=== PATIENT | female | born 1970 | race Hispanic/Latino ===

== ENCOUNTER 2018-09-10 08:54 | Day surgery (SDC) | payer MEDICARE ==
[2018-09-09 16:22] VITALS: BP 130/73
[2018-09-10] VITALS (18 sets, daily range): BP systolic 109–134; BP diastolic 45–74
[~2018-09-10] VITALS: Ht 162.6 cm; Wt 106.6 kg
[~2018-09-10 08:54] MED LIST: ACTOS PO; ALPR1TAB2 PO; AMLO10TA6 PO; CEFAZOLIN 3GM /D5W 100ML 100 ML IV SCH; INSU500I SQ; LIRA0.6P SQ; LISI40TA4 PO; METO-391 PO; ROSU40 PO; SERT100T PO; TYL3 PO
[2018-09-10] MEDS ORDERED: SODIUM CHLORIDE 0.9% 1000ML 1,000 ML IV ONE (09:37)
[2018-09-10] MEDS ORDERED: CEFAZOLIN SODIUM 1 GM VIAL ONE (09:37)
[2018-09-10] MEDS: VANCOMYCIN 2 GM in SODIUM CHLORIDE 0.9% 500ML 500 ML IV SCH ×2 (10:34)
[2018-09-10] MEDS ORDERED: ROPIVACAINE 0.5% 5MG/ML 30ML IJ ONE (11:58)
[2018-09-10] MEDS ORDERED: ESMOLOL HCL 10 MG/ML 10 ML VIAL ONE (11:59)
[2018-09-10] MEDS ORDERED: ONDANSETRON HCL 4 MG/2 ML VIAL ONE (11:59)
[2018-09-10] MEDS ORDERED: LIDOCAINE PF 2% 5ML ABBOJECT ONE (12:00)
[2018-09-10] MEDS ORDERED: PROPOFOL 10 MG/ML 20ML VIAL IV ONE (12:00)
[2018-09-10] MEDS ORDERED: FENTANYL CITRATE PF 50 MCG/1 ML 2ML VIAL ONE ×3 (12:00→14:24)
[2018-09-10] MEDS ORDERED: MIDAZOLAM HCL 1 MG/ML 2ML VIAL ONE (12:00)
[2018-09-10] MEDS ORDERED: EPINEPHRINE 1 MG/ML 30ML VIAL IJ ONE (12:00)
[2018-09-10] MEDS ORDERED: KETAMINE 50MG/ML SYRINGE 50 MG/ML DISP.SYRIN IV ONE (12:01)
[2018-09-10] MEDS ORDERED: SUCCINYLCHOLINE CHLORIDE 20 MG/ML 10 ML VIAL ONE (12:06)
[2018-09-10] MEDS ORDERED: PHENYLEPHRINE HCL 10 MG/ML 1ML VIAL IV ONE (12:46)
[2018-09-10] MEDS ORDERED: EPHEDRINE SULFATE 50 MG/ML AMPULE ONE (12:46)
[2018-09-10] MEDS ORDERED: NEOSTIGMINE 5MG/5ML SYR IV ONE (14:13)
[2018-09-10] MEDS ORDERED: GLYCOPYRROLATE 1 MG/5 ML SYRINGE ONE (14:13)
[2018-09-10] MEDS ORDERED: NAPR-1192 PO (14:28)
[2018-09-10] MEDS ORDERED: CEPH500B PO (14:28)
[2018-09-10] MEDS ORDERED: HYDR-4457 PO (14:28)
[2018-09-10] MEDS ORDERED: MEPERIDINE-PF 25 MG/ML SYG ONE ×2 (14:54→15:15)
[2018-09-10] MEDS ORDERED: METOCLOPRAMIDE 10 MG/2 ML VIAL ONE (14:57)
[2018-09-10] MEDS ORDERED: ONDANSETRON HCL MDV 20ML 2 MG/ML VIAL ONE (14:58)
[2018-09-10] MEDS ORDERED: INSULIN HUMULIN R 100 UNIT/ML 3ML ONE (15:52)
== END 2018-09-10 17:44 | disposition home or self-care (01) ==
LOC: DAH 08:54
PROVIDERS: ATTEND Orthopaedic Surgery
DX: M75.41 Impingement syndrome of right shoulder (principal); M65.811 Other synovitis and tenosynovitis, right shoulder; M25.611 Stiffness of right shoulder, not elsewhere classified; Z68.39 Body mass index [BMI] 39.0-39.9, adult; Z79.899 Other long term (current) drug therapy; Z79.84 Long term (current) use of oral hypoglycemic drugs; Z79.4 Long term (current) use of insulin; I10 Essential (primary) hypertension; E11.9 Type 2 diabetes mellitus without complications; Z98.890 Other specified postprocedural states; F41.9 Anxiety disorder, unspecified; E66.01 Morbid (severe) obesity due to excess calories
CPT/HCPCS: 29824; 29826; 82948 ×3; A4649 ×2; A4930; A6204; G0168; J0171; J0330; J1815; J2001; J2175 ×2; J2250; J2370; J2405; J2704; J2710; J2765; J2795; J3010 ×3; J3370; J3490 ×4; J7030 ×2; J7040; J0690

== ENCOUNTER 2018-12-09 02:31 | Emergency (ER) | payer MEDICARE ==
[~2018-12-09 02:31] MED LIST changes: -AMLO10TA6 PO; +AMLO10TA7 PO; -CEFAZOLIN 3GM /D5W 100ML 100 ML IV SCH; +CEPH500B PO; +HYDR-4457 PO; +NAPR-1192 PO
[2018-12-09 03:00] LABS: APPEARANCE,URINE Clear (CLEAR); BILIRUBIN,URINE Negative (NEGATIVE); GLUCOSE, URINE (UA) Negative (NEGATIVE); KETONES,URINE >=80 mg/dL (NEGATIVE); LEUKOCYTE ESTERASE ,URINE Negative (NEGATIVE); NITRATE,URINE Negative (NEGATIVE); OCCULT BLOOD,URINE Negative (NEGATIVE); PROTEIN,URINE POS 1+ (NEGATIVE)
[2018-12-09 03:01] LABS: COLOR,URINE YELLOW (YELLOW)
[2018-12-09] MEDS ORDERED: MAG HYDROX/AL HYDROX/SIMETH ES 30 ML SUSP UDCUP ONE (03:40)
[2018-12-09] MEDS ORDERED: ONDANSETRON HCL 4 MG/2 ML VIAL ONE (03:40)
[2018-12-09] MEDS ORDERED: LIDOCAINE HCL 2% VISCOUS 15 ML UDCUP ONE (03:40)
[2018-12-09 03:55] LABS: BACTERIA,URINE Rare /HPF (None Seen)
[2018-12-09 03:56] LABS: RBC,URINE None Seen /HPF (0-1)
[2018-12-09 04:16] LABS: CREATININE 0.6 mg/dL (0.5-1.5); POTASSIUM 3.7 mmol/L (3.5-5.1)
[2018-12-09 04:20] LABS: ALBUMIN 3.9 g/dL (3.5-5.0); BILIRUBIN,DIRECT 0.1 mg/dL (0.0-0.3); BILIRUBIN,TOTAL 0.4 mg/dL (0.2-1.0); TOTAL PROTEIN, SERUM 7.4 g/dL (6.0-8.3)
[2018-12-09 04:27] LABS: BASOPHILS % (AUTO) 0.9 % (0.0-5.0); EOSINOPHILS % (AUTO) 3.5 % (0.0-8.0); LYMPHOCYTES % (AUTO) 20.3 % (21.0-51.0); MEAN CORPUSCULAR HGB CONC 33.4 g/dL (32.0-36.0); MEAN CORPUSCULAR VOLUME 83.9 fL (79-99); MONOCYTES % (AUTO) 3.7 % (3.0-13.0); NEUTROPHILS % (AUTO) 71.6 % (40.0-77.0); PLATELET COUNT (AUTO) 176 K/uL (130-400); RED BLOOD CELL COUNT(AUTO) 4.76 MIL/uL (4.00-5.50); RED CELL DISTRIBUTION WIDTH 14.3 % (11.0-15.5); WHITE BLOOD COUNT (AUTO) 7.8 K/uL (4.8-10.8)
[2018-12-09] MEDS ORDERED: PROCHLORPERAZINE EDISYLATE 10 MG/2 ML VIAL ONE (04:58)
[2018-12-09] MEDS ORDERED: MORPHINE SULFATE 2 MG/ML 1ML SYG ONE (04:59)
== END 2018-12-09 06:16 | disposition home or self-care (01) ==
LOC: EDH 02:31
DX: R10.13 Epigastric pain (principal); R11.2 Nausea with vomiting, unspecified; E11.43 Type 2 diabetes mellitus with diabetic autonomic (poly)neuropathy; K31.84 Gastroparesis; Z79.4 Long term (current) use of insulin; I10 Essential (primary) hypertension; E78.5 Hyperlipidemia, unspecified; Z90.49 Acquired absence of other specified parts of digestive tract; Z90.710 Acquired absence of both cervix and uterus; Z88.8 Allergy status to other drugs, medicaments and biological substances
CPT/HCPCS: 36415; 74176; 80048; 80076; 81001; 83690; 85025; 96374; 96375; 99284; J0780; J2405

== ENCOUNTER 2019-07-29 08:35 | Day surgery (SDC) | payer MEDICARE ==
[2019-07-28 15:30] VITALS: BP 153/82
[2019-07-28 15:46] LABS: BASOPHILS % (AUTO) 1.2 % (0.0-5.0); EOSINOPHILS % (AUTO) 1.5 % (0.0-8.0); HEMATOCRIT 42.2 % (36-48); LYMPHOCYTES % (AUTO) 31.5 % (21.0-51.0); MEAN CORPUSCULAR HEMOGLOBIN 29.2 pg (27.0-33.0); MEAN CORPUSCULAR HGB CONC 33.6 g/dL (32.0-36.0); MEAN CORPUSCULAR VOLUME 87.1 fL (79-99); MONOCYTES % (AUTO) 4.4 % (3.0-13.0); NEUTROPHILS % (AUTO) 61.4 % (40.0-77.0); NUCLEATED RED BLOOD CELLS 0.1 % (0.0-0.19); PLATELET COUNT (AUTO) 164 K/uL (130-400); RED BLOOD CELL COUNT(AUTO) 4.84 MIL/uL (4.00-5.50); RED CELL DISTRIBUTION WIDTH 13.6 % (11.0-15.5); WHITE BLOOD COUNT (AUTO) 5.9 K/uL (4.8-10.8)
[2019-07-28 15:59] LABS: CREATININE 0.5 mg/dL (0.5-1.5); POTASSIUM 3.6 mmol/L (3.5-5.1)
[~2019-07-29] VITALS: Ht 162.6 cm; Wt 74.4 kg
[2019-07-29] VITALS (20 sets, daily range): BP systolic 136–173; BP diastolic 56–92
[2019-07-29] MEDS: CEFAZOLIN SODIUM 1 GM VIAL IVP SCH ×2 (06:00→12:00)
[~2019-07-29 08:35] MED LIST changes: -ALPR1TAB2 PO; -AMLO10TA7 PO; -CEPH500B PO; +GABA600T10 PO; +HUMALOG SQ; -HYDR-4457 PO; +INSLAN SQ; -INSU500I SQ; -LIRA0.6P SQ; -METO-391 PO; -NAPR-1192 PO; +OZEMPIC PO; -ROSU40 PO; -SERT100T PO; -TYL3 PO
[2019-07-29] MEDS ORDERED: SODIUM CHLORIDE 0.9% 1000ML 1,000 ML IV ONE (09:13)
[2019-07-29] MEDS ORDERED: MIDAZOLAM HCL 1 MG/ML 2ML VIAL ONE (10:33)
[2019-07-29] MEDS ORDERED: PROPOFOL 10 MG/ML 20ML VIAL IV ONE (10:38)
[2019-07-29] MEDS ORDERED: ROCURONIUM 10MG/1ML SYR 10 MG/ML ML ONE (10:38)
[2019-07-29] MEDS ORDERED: LIDOCAINE PF 2% 5ML ABBOJECT ONE ×2 (10:38→11:23)
[2019-07-29] MEDS ORDERED: FENTANYL CITRATE PF 50 MCG/1 ML 5ML AMP IV ONE (10:38)
[2019-07-29] MEDS ORDERED: SUCCINYLCHOLINE 200MG/10ML SYR ONE (11:24)
[2019-07-29] MEDS ORDERED: EPHEDRINE SULFATE 50 MG/ML AMPULE ONE (11:51)
[2019-07-29] MEDS ORDERED: KETAMINE 50MG/ML SYRINGE 50 MG/ML DISP.SYRIN IV ONE (12:11)
[2019-07-29] MEDS ORDERED: DEXAMETHASONE SOD PHOSPHATE 10MG/ML 1ML VIAL ONE (12:13)
[2019-07-29] MEDS ORDERED: ONDANSETRON HCL 4 MG/2 ML VIAL ONE ×2 (12:13→14:40)
[2019-07-29] MEDS ORDERED: NEOSTIGMINE 5MG/5ML SYR IV ONE (12:13)
[2019-07-29] MEDS ORDERED: GLYCOPYRROLATE 1 MG/5 ML SYRINGE ONE (12:13)
[2019-07-29] MEDS ORDERED: KETOROLAC TROMETHAMINE 30MG/ML ONE (12:14)
[2019-07-29] MEDS ORDERED: HYDRALAZINE HCL 20 MG/ML VIAL ONE (12:35)
[2019-07-29] MEDS ORDERED: CEPH500B PO (13:11)
[2019-07-29] MEDS ORDERED: HYDR-4457 PO (13:11)
[2019-07-29] MEDS ORDERED: MELO-108 PO (13:11)
[2019-07-29] MEDS ORDERED: MORPHINE SULFATE 4 MG/1ML SYG ONE (14:12)
--- NOTE | 2019-07-29 14:16 | NUR ---
PT COMPLAIN CHEST PRESSURE 02/02. ALETHA HE NOTIFIED. ORDERS GIVEN FOR EKG, MORPHINE AND O2 2L. Addendum: 07/29/19 at 1422 by ADAM PEOPLES RN RN Amended: Links added.
--- NOTE | 2019-07-29 14:29 | NUR ---
ALETHA HE REVIEWED EKG. PT STATES CHEST PRESSURE NO LONGER PRESENT. VS STABLE. ALETHA HE ORDERED TO SEND PT TO DAY PT FOR FURTHER MONITORING AND DISCHARGE HOME. Addendum: 07/29/19 at 1433 by ADAM PEOPLES RN RN Amended: Links added.
[2019-07-29] MEDS ORDERED: METOCLOPRAMIDE 10 MG/2 ML VIAL IVP SCH (15:30)
== END 2019-07-29 18:10 | disposition home or self-care (01) ==
LOC: DAH 08:35
PROVIDERS: ATTEND Orthopaedic Surgery
DX: M75.01 Adhesive capsulitis of right shoulder (principal); M25.511 Pain in right shoulder; I10 Essential (primary) hypertension; E66.9 Obesity, unspecified; E11.21 Type 2 diabetes mellitus with diabetic nephropathy; Z68.28 Body mass index [BMI] 28.0-28.9, adult; Z79.899 Other long term (current) drug therapy; Z79.4 Long term (current) use of insulin; Z79.84 Long term (current) use of oral hypoglycemic drugs; Z98.890 Other specified postprocedural states; Z90.49 Acquired absence of other specified parts of digestive tract; Z88.8 Allergy status to other drugs, medicaments and biological substances; Z82.49 Family history of ischemic heart disease and other diseases of the circulatory system; Z82.3 Family history of stroke; Z83.3 Family history of diabetes mellitus
CPT/HCPCS: 29822; 29824; 29826; 36415; 80048; 82948 ×2; 85025; 93005; A4215 ×2; A4221 ×2; A4222 ×2; A4223 ×2; A4565; A4600; A4649 ×3; A4663 ×2; A4930 ×2; A5120; A6204; J0330; J0690; J1100; J1885; J2001 ×2; J2250; J2270; J2405 ×2; J2704; J2710; J2765; J3010; J3490 ×3; J7030 ×2; J0360

== ENCOUNTER → 2019-11-22 | Outpatient (CLI) | payer MEDICARE ==
[~2019-11-22] MED LIST changes: +CEPH500B PO; +HYDR-4457 PO; +MELO-108 PO
== END | disposition home or self-care (01) ==
LOC: RAH 11:01
PROVIDERS: ATTEND Internal Medicine Gastroenterology
DX: R11.2 Nausea with vomiting, unspecified (principal)
CPT/HCPCS: 78264; A9541

== ENCOUNTER → 2019-12-12 | Outpatient (CLI) | payer MEDICARE | END | disposition home or self-care (01) | LOC: RAH 09:13 | PROVIDERS: ATTEND Internal Medicine Gastroenterology | DX: R13.10 Dysphagia, unspecified (principal); K21.9 Gastro-esophageal reflux disease without esophagitis; Z98.84 Bariatric surgery status | CPT/HCPCS: 74240 ==

== ENCOUNTER → 2020-05-15 | Outpatient (CLI) | payer MEDICARE | END | disposition home or self-care (01) | LOC: RAH 14:16 | PROVIDERS: ATTEND Orthopaedic Surgery | DX: S62.112A Displaced fracture of triquetrum [cuneiform] bone, left wrist, initial encounter for closed fracture (principal); X58.XXXA Exposure to other specified factors, initial encounter; Y93.89 Activity, other specified; Y92.89 Other specified places as the place of occurrence of the external cause; Y99.8 Other external cause status | CPT/HCPCS: 73200 ==

== ENCOUNTER 2020-07-23 07:35 | Observation (INO) | payer MEDICARE ==
[2020-07-16 14:47] LABS: BASOPHILS % (AUTO) 0.9 % (0.0-5.0); HEMATOCRIT 40.7 % (36-48); LYMPHOCYTES % (AUTO) 40.2 % (21.0-51.0); MEAN CORPUSCULAR HEMOGLOBIN 28.3 pg (27.0-33.0); MEAN CORPUSCULAR HGB CONC 32.9 g/dL (32.0-36.0); MEAN CORPUSCULAR VOLUME 85.9 fL (79-99); MONOCYTES % (AUTO) 4.4 % (3.0-13.0); NEUTROPHILS % (AUTO) 51.3 % (40.0-77.0); PLATELET COUNT (AUTO) 194 K/uL (130-400); RED BLOOD CELL COUNT(AUTO) 4.74 MIL/uL (4.00-5.50); RED CELL DISTRIBUTION WIDTH 12.6 % (11.0-15.5); WHITE BLOOD COUNT (AUTO) 6.4 K/uL (4.8-10.8)
[2020-07-16 14:56] LABS: CREATININE 0.6 mg/dL (0.5-1.5); POTASSIUM 3.8 mmol/L (3.5-5.1)
[~2020-07-23] VITALS: Ht 163.8 cm; Wt 67.4 kg
[2020-07-23] VITALS (30 sets, daily range): BP systolic 124–199; BP diastolic 67–98
[~2020-07-23 07:35] MED LIST changes: -ACTOS PO; -CEPH500B PO; +EXEN2PEN SQ; +FURO40TA5 PO; +GABA300C PO; -GABA600T10 PO; -HUMALOG SQ; -HYDR-4457 PO; -MELO-108 PO; -OZEMPIC PO; +PRED5DRO25 OP; +ZOLP10TA2 PO
[2020-07-23] MEDS ORDERED: SODIUM CHLORIDE 0.9% 1000ML 1,000 ML IV SCH (08:00)
[2020-07-23] MEDS: CEFAZOLIN SODIUM 1 GM VIAL IVP ONE ×2 (08:00→11:50)
[2020-07-23] MEDS ORDERED: CEFAZOLIN SODIUM 1 GM VIAL ONE (09:57)
[2020-07-23] MEDS ORDERED: LIDOCAINE PF 2% 5ML ABBOJECT ONE (11:26)
[2020-07-23] MEDS ORDERED: ROCURONIUM 10MG/1ML SYR 10 MG/ML ML ONE ×2 (11:27→12:40)
[2020-07-23] MEDS ORDERED: PROPOFOL 10 MG/ML 20ML VIAL IV ONE (11:27)
[2020-07-23] MEDS ORDERED: MIDAZOLAM HCL 1 MG/ML 2ML VIAL ONE (11:27)
[2020-07-23] MEDS ORDERED: DEXAMETHASONE SOD PHOSPHATE 4 MG/ML 1ML VIAL ONE (11:53)
[2020-07-23] MEDS ORDERED: FENTANYL CITRATE PF 50 MCG/1 ML 2ML VIAL ONE ×2 (11:56→12:35)
[2020-07-23] MEDS ORDERED: NEOSTIGMINE 5MG/5ML SYR IV ONE (12:49)
[2020-07-23] MEDS ORDERED: ONDANSETRON HCL 4 MG/2 ML VIAL ONE ×2 (12:49→14:19)
[2020-07-23] MEDS ORDERED: GLYCOPYRROLATE 1 MG/5 ML SYRINGE ONE (12:49)
[2020-07-23] MEDS ORDERED: MEPERIDINE-PF 25 MG/ML SYG ONE ×2 (14:14→15:34)
[2020-07-23] MEDS ORDERED: MORPHINE SULFATE 2 MG/ML 1ML SYG ONE ×3 (14:31→16:48)
[2020-07-23] MEDS ORDERED: HYDRALAZINE HCL 20 MG/ML VIAL ONE (14:39)
--- NOTE | 2020-07-23 17:30 | NUR ---
From PACU PT ARRIVED TO FLOOR FROM PACU, PT IS DROWSY BUT EASILY AROUSES, LOWER ABDOMINAL DRESSING D/I ABDOMINAL BINDER IN PLACE, X2 KYLE DRAINS, ONE ON THE RIGHT AND ONE TO THE LEFT, BOTH PATENT AND COMPRESSED. PLAN OF CARE DISCUSSED, INFORMED PRIMARY OF PT'S ARRIVAL TO ROOM.
[2020-07-23] MEDS ORDERED: TRAMADOL HCL 50 MG TABLET PO PRN (19:00)
[2020-07-23] MEDS ORDERED: CEFAZOLIN SODIUM 1 GM VIAL IVP SCH (20:15)
[2020-07-23] MEDS ORDERED: APAP/CODEINE 120/12MG 5ML PO PRN (20:15)
[2020-07-23] MEDS: MORPHINE SULFATE 4 MG/1ML SYG IV PRN (21:33)
[2020-07-23] MEDS: CEFAZOLIN SODIUM 1 GM VIAL IVP SCH (21:33)
[2020-07-23] MEDS: KETOROLAC TROMETHAMINE 30MG/ML IV PRN (23:22)
[2020-07-24] MEDS: MORPHINE SULFATE 4 MG/1ML SYG IV PRN ×2 (02:49→09:12)
[2020-07-24 03:53] VITALS: BP 124/62
[2020-07-24] MEDS: KETOROLAC TROMETHAMINE 30MG/ML IV PRN ×2 (05:44→14:04)
[2020-07-24] MEDS: CEFAZOLIN SODIUM 1 GM VIAL IVP SCH (05:44)
[2020-07-24 06:02] LABS: BASOPHILS % (AUTO) 0.6 % (0.0-5.0); EOSINOPHILS % (AUTO) 0.9 % (0.0-8.0); HEMATOCRIT 32.5 % (36-48); LYMPHOCYTES % (AUTO) 13.5 % (21.0-51.0); MEAN CORPUSCULAR HEMOGLOBIN 28.5 pg (27.0-33.0); MEAN CORPUSCULAR HGB CONC 33.2 g/dL (32.0-36.0); MEAN CORPUSCULAR VOLUME 85.8 fL (79-99); MONOCYTES % (AUTO) 6.4 % (3.0-13.0); NEUTROPHILS % (AUTO) 78.3 % (40.0-77.0); PLATELET COUNT (AUTO) 166 K/uL (130-400); RED BLOOD CELL COUNT(AUTO) 3.79 MIL/uL (4.00-5.50); RED CELL DISTRIBUTION WIDTH 12.1 % (11.0-15.5)
[2020-07-24 06:20] LABS: CREATININE 0.6 mg/dL (0.5-1.5); POTASSIUM 4.1 mmol/L (3.5-5.1)
[2020-07-24 08:00] VITALS: BP 119/61
[2020-07-24] MEDS ORDERED: NON-FORMULARY MEDICATION 1 EACH (Zolpidem Tartrate (Ambien) 10 MG) PO PRN (09:30)
[2020-07-24] MEDS ORDERED: ZOLPIDEM TARTRATE 5 MG TAB PO PRN (10:00)
[2020-07-24 11:45] VITALS: BP 124/66
--- NOTE | 2020-07-24 15:25 | NUR ---
DCP IA done by Collins Edward RN. As per Collins spoke to pt over the phone. Pt is independent prior to admission, lives at home alone. Uses [facility] on [address] for meds. Denies any equipments/services. Feels safe to go back home, still drives, boyfriend and son able to assist with transportation and needs as necessary. DC plan to home once stable. CM to continue to follow up. Addendum: 07/24/20 at 1527 by KAPIL PASCUAL LVN CM Amended: Links added.
[2020-07-24] MEDS ORDERED: AMOX-429 PO (17:39)
[2020-07-24] MEDS ORDERED: IBUP-1493 PO (17:40)
[2020-07-24] MEDS ORDERED: PREDNISOLONE ACETATE 1% 5ML DROPS.SUSP OP SCH (21:00)
[2020-07-24] MEDS ORDERED: INSULIN GLARGINE 100 UNITS/ML 10 ML VIAL SQ SCH (21:00)
[2020-07-24] MEDS ORDERED: LISINOPRIL 40 MG TABLET PO SCH (21:00)
[2020-07-25] MEDS ORDERED: FUROSEMIDE 40 MG TABLET PO SCH (09:00)
[2020-07-25] MEDS ORDERED: GABAPENTIN 300 MG CAPSULE PO SCH (09:00)
[2020-07-31] MEDS ORDERED: EXENATIDE MICROSPHERES 2 MG SQ SCH (09:00)
== END 2020-07-24 19:20 | disposition home or self-care (01) ==
LOC: DAH 07:35 → 3BH 07:36
PROVIDERS: ADMIT Surgery; ATTEND Surgery
DX: M79.3 Panniculitis, unspecified (principal); Z20.828 Contact with and (suspected) exposure to other viral communicable diseases
CPT/HCPCS: 15830; 36415 ×2; 80048 ×2; 82948 ×4; 84703; 85025 ×2; 88305; 93005; 96374; 96375; 96376; A4213; A4215 ×2; A4221; A4222; A4223; A4452; A4649; A4663; A6260; C9803; G0378 ×18; J0360; J0690 ×3; J1885 ×3; J2001; J2175 ×2; J2250; J2270 ×3; J2405 ×2; J2704; J2710; J3010 ×2; J3490; J7030; J7120; J7510; U0003; J1100

== ENCOUNTER → 2020-09-03 | Outpatient (CLI) | payer MEDICARE ==
[~2020-09-03] MED LIST changes: +AMOX-429 PO; +IBUP-1493 PO; +OZEMPIC SQ
[2020-09-03 16:23] LABS: INR 0.92 (0.85-1.15); PARTIAL THROMBOPLASTIN TIME 24.7 SEC (26.3-35.5)
[2020-09-03 16:35] LABS: BASOPHILS % (AUTO) 1.5 % (0.0-5.0); EOSINOPHILS % (AUTO) 3.6 % (0.0-8.0); HEMATOCRIT 34.5 % (36-48); LYMPHOCYTES % (AUTO) 37.9 % (21.0-51.0); MEAN CORPUSCULAR HEMOGLOBIN 25.7 pg (27.0-33.0); MEAN CORPUSCULAR HGB CONC 30.7 g/dL (32.0-36.0); MEAN CORPUSCULAR VOLUME 83.5 fL (79-99); MONOCYTES % (AUTO) 4.8 % (3.0-13.0); PLATELET COUNT (AUTO) 211 K/uL (130-400); RED BLOOD CELL COUNT(AUTO) 4.13 MIL/uL (4.00-5.50); RED CELL DISTRIBUTION WIDTH 12.3 % (11.0-15.5); WHITE BLOOD COUNT (AUTO) 5.2 K/uL (4.8-10.8)
[2020-09-03 16:54] LABS: ALBUMIN 3.6 g/dL (3.5-5.0); BILIRUBIN,TOTAL 0.3 mg/dL (0.2-1.0); CREATININE 0.4 mg/dL (0.5-1.5); POTASSIUM 4.2 mmol/L (3.5-5.1); TOTAL PROTEIN, SERUM 6.9 g/dL (6.0-8.3)
--- NOTE | 2020-09-04 09:15 | NUR ---
Pt arrived to Day pt. JONATHON Mccoy here to access pt. Pt reports draining on average 30 cc per 24 hour time period. Pt reports having emptied bag at 23:00 yesterday and bag currently has 12 cc of drainage. Pt reports that the drain is not being flushed. Pt complains that accordion valve keeps releasing every 10 mins.
--- NOTE | 2020-09-04 09:30 | NUR ---
JONATHON Mccoy spoke with Dr. Foster concerning pt's drainage status. Dr. Foster gave orders to reschedule abscessorgram when drain output it <10 mols in 24 hours.
--- NOTE | 2020-09-04 09:40 | NUR ---
Dr. Medina was notified that Dr. Foster was not preceding with the abscessogram. That pt was continuing to drain 30 cc/24 hr period, that 12 ccs drained since 23:00 09/03/[address]. Dr. Medina stated that he did not agree. Dr. Medina informed that I would pass the message along to Dr. Foster and provide his number so he could be contacted.
--- NOTE | 2020-09-04 10:00 | NUR ---
Luis RN, notified that pt was having issues with her drainage bag and the accordion valve persisting to pop up. Luis RN replaced drainage bag. Site of catheter insertion showed no signs of bleeding or infection, dressing was clean dry and intact. Bag draining clear hedy fluid.
--- NOTE | 2020-09-04 10:15 | NUR ---
Nadine, RN called and notified me that Dr. Medina and Dr. Phillip spoke and that the pt would be rescheduled for 09/12/20 at 11:00. Pt notified. Scheduling notified, and appointment for pre-op scheduled for Thursday at 1:[address] Medina's nurse Breanne called and notified that pt's procedure was rescheduled and dates give for procedure and pre-op. Nurse informed that new drainage bag was connected.
--- NOTE | 2020-09-04 10:30 | NUR ---
Pt sent home. Pt provided with date and time of newly scheduled procedure. Pt reports no further questions at this time. Tape provided at pt's request to better secure the drainage bag and to cover the dressing.
== END | disposition home or self-care (01) ==
LOC: DAH 10:00 → EDSTATUS 09-04 11:00
PROVIDERS: ATTEND Surgery
DX: Z01.818 Encounter for other preprocedural examination (principal); K57.80 Diverticulitis of intestine, part unspecified, with perforation and abscess without bleeding; Z79.899 Other long term (current) drug therapy; Z98.84 Bariatric surgery status; R79.1 Abnormal coagulation profile
CPT/HCPCS: 36415; 80053; 85025; 85610; 85730

== ENCOUNTER 2020-10-03 12:05 | Day surgery (SDC) | payer MEDICARE ==
[2020-10-01 15:06] LABS: BASOPHILS % (AUTO) 1.3 % (0.0-5.0); EOSINOPHILS % (AUTO) 2.9 % (0.0-8.0); HEMATOCRIT 37.8 % (36-48); LYMPHOCYTES % (AUTO) 28.9 % (21.0-51.0); MEAN CORPUSCULAR HEMOGLOBIN 23.9 pg (27.0-33.0); MEAN CORPUSCULAR HGB CONC 30.4 g/dL (32.0-36.0); MEAN CORPUSCULAR VOLUME 78.4 fL (79-99); MONOCYTES % (AUTO) 4.5 % (3.0-13.0); NEUTROPHILS % (AUTO) 62.3 % (40.0-77.0); PLATELET COUNT (AUTO) 244 K/uL (130-400); RED BLOOD CELL COUNT(AUTO) 4.82 MIL/uL (4.00-5.50); RED CELL DISTRIBUTION WIDTH 12.9 % (11.0-15.5); WHITE BLOOD COUNT (AUTO) 6.8 K/uL (4.8-10.8)
[2020-10-01 15:20] LABS: CREATININE 0.4 mg/dL (0.5-1.5); INR 0.92 (0.85-1.15); POTASSIUM 4.6 mmol/L (3.5-5.1)
[~2020-10-03 12:05] MED LIST changes: -AMOX-429 PO; -EXEN2PEN SQ; -PRED5DRO25 OP
[2020-10-03] MEDS ORDERED: PANT40TA54 PO (13:41)
[2020-10-03] MEDS ORDERED: IOHEXOL-350 50ML VIAL IV ONE (14:37)
--- NOTE | 2020-10-03 16:16 | NUR ---
RE: ABSCESSOGRAM PATIENT SCHEDULED FOR ABSCESSOGRAM. PATENT PLACED ON FLUOROSCOPY TABLE AND ISOVUE 350MG 5ML INJECTED TO CATHETER. NO FLUID SEEN AND CATHETER REMOVED ORDERED. González ZARAGOZA RT(R) REMOVED CATHETER WITH STERILE TECHNIQUE. AND DRESSING APPLIED. NO BLEEDING NOTED. PATIENT TRANSPORTED TO [facility] AT 1515.
--- NOTE | 2020-10-03 16:30 | NUR ---
D/C Pt prepared for discharge; procedure done but no report had been called in. Nurse not made aware of when pt arrived from procedure. Pt awake and alert. Spoke to IR nurse; states no sedation and no local anesthetic was administered. Pt in no distress. No bleeding, no drainage noted to dressing site. Discharge instructions given to pt. Verbalized understanding. Pt ambulated out of facility accompanied by nurse.
== END 2020-10-03 16:55 | disposition home or self-care (01) ==
LOC: DAH 12:05
PROVIDERS: ATTEND Surgery
DX: K57.80 Diverticulitis of intestine, part unspecified, with perforation and abscess without bleeding (principal); I10 Essential (primary) hypertension; E11.43 Type 2 diabetes mellitus with diabetic autonomic (poly)neuropathy; K31.84 Gastroparesis; M79.7 Fibromyalgia; F41.9 Anxiety disorder, unspecified; F32.9 Major depressive disorder, single episode, unspecified; Z98.890 Other specified postprocedural states; Z79.01 Long term (current) use of anticoagulants; Z90.710 Acquired absence of both cervix and uterus; Z90.49 Acquired absence of other specified parts of digestive tract; Z98.84 Bariatric surgery status; Z88.8 Allergy status to other drugs, medicaments and biological substances; Z82.49 Family history of ischemic heart disease and other diseases of the circulatory system; Z83.3 Family history of diabetes mellitus; Z80.9 Family history of malignant neoplasm, unspecified; Z79.4 Long term (current) use of insulin; Z79.899 Other long term (current) drug therapy
CPT/HCPCS: 36415; 49424; 80048; 82948; 85025; 85610; 85730; Q9967; 76000

== ENCOUNTER → 2021-01-02 | Outpatient (CLI) | payer MEDICARE ==
[~2021-01-02] MED LIST changes: -FURO40TA5 PO; -IBUP-1493 PO; -LISI40TA4 PO; +LISI40TA9 PO; +PANT40TA54 PO; -ZOLP10TA2 PO
== END | disposition home or self-care (01) ==
LOC: DTH 13:15
PROVIDERS: ATTEND Surgery
DX: E66.01 Morbid (severe) obesity due to excess calories (principal); E11.9 Type 2 diabetes mellitus without complications
CPT/HCPCS: 97802

== ENCOUNTER 2021-02-07 12:20 | Emergency (ER) | payer MEDICARE ==
[2021-02-07 12:55] LABS: BASOPHILS % (AUTO) 1.6 % (0.0-5.0); EOSINOPHILS % (AUTO) 4.3 % (0.0-8.0); LYMPHOCYTES % (AUTO) 43.7 % (21.0-51.0); MEAN CORPUSCULAR HEMOGLOBIN 23.3 pg (27.0-33.0); MEAN CORPUSCULAR HGB CONC 31.1 g/dL (32.0-36.0); MEAN CORPUSCULAR VOLUME 75.1 fL (79-99); MONOCYTES % (AUTO) 4.7 % (3.0-13.0); NEUTROPHILS % (AUTO) 45.5 % (40.0-77.0); PLATELET COUNT (AUTO) 182 K/uL (130-400); RED BLOOD CELL COUNT(AUTO) 4.93 MIL/uL (4.00-5.50); RED CELL DISTRIBUTION WIDTH 15.9 % (11.0-15.5); WHITE BLOOD COUNT (AUTO) 4.4 K/uL (4.8-10.8)
[2021-02-07 13:23] LABS: ALBUMIN 3.8 g/dL (3.5-5.0); BILIRUBIN,TOTAL 0.4 mg/dL (0.2-1.0); CREATININE 0.6 mg/dL (0.5-1.5); TOTAL PROTEIN, SERUM 7.1 g/dL (6.0-8.3)
[2021-02-07 13:28] LABS: B-TYPE NATRIURETIC PEPTIDE 28 pg/mL (0-100)
[2021-02-07] MEDS ORDERED: IOHEXOL-350 75 ML VIAL IV ONE (13:35)
[2021-02-07 14:37] LABS: APPEARANCE,URINE Clear (CLEAR); BILIRUBIN,URINE Negative (NEGATIVE); COLOR,URINE Yellow (YELLOW); GLUCOSE, URINE (UA) Negative (NEGATIVE); KETONES,URINE Negative (NEGATIVE); LEUKOCYTE ESTERASE ,URINE Trace (NEGATIVE); NITRATE,URINE Negative (NEGATIVE); OCCULT BLOOD,URINE Negative (NEGATIVE); PROTEIN,URINE Negative (NEGATIVE)
[2021-02-07 14:52] LABS: RBC,URINE None Seen /HPF (0-1); WBC,URINE 0-1 /HPF (0-1)
[2021-02-07 14:53] LABS: BACTERIA,URINE Rare /HPF (None Seen); SQUAMOUS EPITHELIAL CELL,UR 0-2 /HPF (0-2)
== END 2021-02-07 16:33 | disposition home or self-care (01) ==
LOC: EDH 12:20
DX: R10.12 Left upper quadrant pain (principal); E11.9 Type 2 diabetes mellitus without complications; E78.5 Hyperlipidemia, unspecified; I10 Essential (primary) hypertension; Z90.49 Acquired absence of other specified parts of digestive tract; Z90.710 Acquired absence of both cervix and uterus; Z88.5 Allergy status to narcotic agent; Z88.8 Allergy status to other drugs, medicaments and biological substances; Z88.9 Allergy status to unspecified drugs, medicaments and biological substances
CPT/HCPCS: 36415; 74177; 80053; 81001; 82550; 83605; 83690; 83880; 84484; 85025; 93005; 99285; Q9967

== ENCOUNTER 2021-04-22 09:22 | Day surgery (SDC) | payer MEDICARE ==
[2021-04-15 12:13] LABS: BASOPHILS % (AUTO) 1.5 % (0.0-5.0); EOSINOPHILS % (AUTO) 4.3 % (0.0-8.0); LYMPHOCYTES % (AUTO) 47.5 % (21.0-51.0); MEAN CORPUSCULAR HEMOGLOBIN 23.9 pg (27.0-33.0); MEAN CORPUSCULAR HGB CONC 31.1 g/dL (32.0-36.0); MEAN CORPUSCULAR VOLUME 77.1 fL (79-99); MONOCYTES % (AUTO) 5.4 % (3.0-13.0); NEUTROPHILS % (AUTO) 41.1 % (40.0-77.0); PLATELET COUNT (AUTO) 169 K/uL (130-400); RED BLOOD CELL COUNT(AUTO) 4.93 MIL/uL (4.00-5.50); RED CELL DISTRIBUTION WIDTH 16.4 % (11.0-15.5); WHITE BLOOD COUNT (AUTO) 5.3 K/uL (4.8-10.8)
[2021-04-15 12:18] LABS: CREATININE 0.5 mg/dL (0.5-1.5); POTASSIUM 4.3 mmol/L (3.5-5.1)
[2021-04-22] VITALS (17 sets, daily range): BP systolic 135–169; BP diastolic 65–85
[~2021-04-22] VITALS: Ht 162.6 cm; Wt 71.2 kg
[~2021-04-22 09:22] MED LIST changes: +ALPR1TAB2 PO; +CYCL30DR OU; +FURO40TA5 PO; -GABA300C PO; +GABA600T10 PO; -OZEMPIC SQ; -PANT40TA54 PO; +SEMA1PEN3 SQ; +SUCR1ORA15 PO; +ZOLP10TA2 PO
[2021-04-22] MEDS ORDERED: 0.9%NACL 1000ML 1,000 ML IV ONE (10:05)
[2021-04-22] MEDS ORDERED: DEXTROSE 50%-WATER 50 ML DISP.SYRIN IV SCH (10:30)
[2021-04-22] MEDS ORDERED: LINA290C PO (10:41)
[2021-04-22] MEDS ORDERED: MIDAZOLAM HCL 1 MG/ML 2ML VIAL ONE (11:15)
[2021-04-22] MEDS ORDERED: CEFAZOLIN SODIUM 1 GM VIAL ONE (11:17)
[2021-04-22] MEDS ORDERED: LIDOCAINE PF 100MG/5ML (2%) SYRINGE 5ML ONE (11:19)
[2021-04-22] MEDS ORDERED: SUCCINYLCHOLINE CHLORIDE 20 MG/ML 10 ML VIAL ONE (11:19)
[2021-04-22] MEDS ORDERED: FENTANYL CITRATE PF 50 MCG/1 ML 2ML VIAL ONE (11:20)
[2021-04-22] MEDS ORDERED: PROPOFOL 10 MG/ML 20ML VIAL IV ONE (11:20)
[2021-04-22] MEDS ORDERED: CEFAZOLIN SODIUM 1 GM VIAL IVP SCH (11:30)
[2021-04-22] MEDS ORDERED: ROCURONIUM 10MG/1ML SYR 10 MG/ML ML ONE (11:32)
[2021-04-22] MEDS ORDERED: BUPIVACAINE/PF 0.5% 10ML VIAL ONE (12:07)
[2021-04-22] MEDS ORDERED: MEPERIDINE-PF 25 MG/ML SYG ONE (12:28)
[2021-04-22] MEDS ORDERED: ONDANSETRON 4MG INJ ONE (12:40)
== END 2021-04-22 14:15 | disposition home or self-care (01) ==
LOC: DAH 09:22 → EDSTATUS 10:40 → DAH 14:15
PROVIDERS: ATTEND Surgery
DX: K66.0 Peritoneal adhesions (postprocedural) (postinfection) (principal); Z20.822 Contact with and (suspected) exposure to COVID-19; R10.32 Left lower quadrant pain; I10 Essential (primary) hypertension; K21.9 Gastro-esophageal reflux disease without esophagitis; F41.9 Anxiety disorder, unspecified; F32.9 Major depressive disorder, single episode, unspecified; E11.9 Type 2 diabetes mellitus without complications; M79.7 Fibromyalgia; Z90.710 Acquired absence of both cervix and uterus; Z79.899 Other long term (current) drug therapy; Z98.891 History of uterine scar from previous surgery; Z98.890 Other specified postprocedural states; Z98.84 Bariatric surgery status; Z90.49 Acquired absence of other specified parts of digestive tract; Z82.49 Family history of ischemic heart disease and other diseases of the circulatory system; Z80.1 Family history of malignant neoplasm of trachea, bronchus and lung; Z83.3 Family history of diabetes mellitus
CPT/HCPCS: 36415; 49329; 80048; 82948 ×3; 85025; 87635; A4215; A4221; A4222; A4223; A4344; A4606; A4649 ×2; C1769 ×3; C9803; G0168; J0330; J0690; J2001; J2175; J2250; J2405; J2704; J3010; J3490; J7030 ×2

== ENCOUNTER 2021-06-20 06:36 | Day surgery (SDC) | payer MEDICARE ==
[2021-06-19 12:10] LABS: BASOPHILS % (AUTO) 1.6 % (0.0-5.0); EOSINOPHILS % (AUTO) 3.6 % (0.0-8.0); HEMATOCRIT 35.2 % (36-48); LYMPHOCYTES % (AUTO) 44.5 % (21.0-51.0); MEAN CORPUSCULAR HEMOGLOBIN 24.2 pg (27.0-33.0); MEAN CORPUSCULAR HGB CONC 30.7 g/dL (32.0-36.0); MEAN CORPUSCULAR VOLUME 78.9 fL (79-99); MONOCYTES % (AUTO) 5.2 % (3.0-13.0); NEUTROPHILS % (AUTO) 44.9 % (40.0-77.0); PLATELET COUNT (AUTO) 188 K/uL (130-400); RED BLOOD CELL COUNT(AUTO) 4.46 MIL/uL (4.00-5.50); RED CELL DISTRIBUTION WIDTH 14.8 % (11.0-15.5); WHITE BLOOD COUNT (AUTO) 5.8 K/uL (4.8-10.8)
[2021-06-19 12:16] LABS: CREATININE 0.5 mg/dL (0.5-1.5); POTASSIUM 4.5 mmol/L (3.5-5.1)
[2021-06-19 16:16] VITALS: BP 138/72
[2021-06-20] VITALS (11 sets, daily range): BP systolic 141–181; BP diastolic 74–91
[~2021-06-20] VITALS: Ht 162.6 cm; Wt 74.1 kg
[~2021-06-20 06:36] MED LIST changes: -CYCL30DR OU; -FURO40TA5 PO; +LINA290C PO; +LIRA0.6P SQ; -SEMA1PEN3 SQ
[2021-06-20] MEDS ORDERED: 0.9%NACL 1000ML 1,000 ML IV ONE (06:51)
[2021-06-20] MEDS: CEFAZOLIN SODIUM 1 GM VIAL ONE ×2 (07:00→08:35)
[2021-06-20] MEDS ORDERED: LIDOCAINE PF 100MG/5ML (2%) SYRINGE 5ML ONE (07:53)
[2021-06-20] MEDS ORDERED: PROPOFOL 10 MG/ML 20ML VIAL IV ONE (07:54)
[2021-06-20] MEDS ORDERED: MIDAZOLAM HCL 1 MG/ML 2ML VIAL ONE (07:54)
[2021-06-20] MEDS ORDERED: FENTANYL CITRATE PF 50 MCG/1 ML 2ML VIAL ONE (07:54)
[2021-06-20] MEDS ORDERED: CEFAZOLIN SODIUM 1 GM VIAL ONE (08:02)
[2021-06-20] MEDS ORDERED: LIDOCAINE HCL MDV 0.5% 50ML VIAL IJ ONE (08:10)
[2021-06-20] MEDS ORDERED: KETOROLAC 30MG VIAL (30MG/ML) ONE (08:12)
[2021-06-20] MEDS ORDERED: BUPIVACAINE/PF 0.25% 30ML VIAL IJ ONE (08:49)
[2021-06-20] MEDS ORDERED: CEPHA2505L PO (09:33)
[2021-06-20] MEDS ORDERED: ACET5ELI PO (09:33)
== END 2021-06-20 11:00 | disposition home or self-care (01) ==
LOC: DAH 06:36
PROVIDERS: ATTEND Orthopaedic Surgery
DX: M65.4 Radial styloid tenosynovitis [de Quervain] (principal); I10 Essential (primary) hypertension; E11.9 Type 2 diabetes mellitus without complications; Z98.84 Bariatric surgery status; Z98.890 Other specified postprocedural states; Z79.899 Other long term (current) drug therapy
CPT/HCPCS: 25000; 36415; 80048; 82948 ×2; 85025; 87635; A4215 ×2; A4221; A4222; A4223; A4649; A4663; A4930; A5120; A6223; C9803; J0690 ×2; J1885; J2001; J2250; J2704; J3010; J3490 ×2; J7030

== ENCOUNTER 2021-08-05 08:05 | Day surgery (SDC) | payer MEDICARE ==
[2021-07-31 15:58] LABS: BASOPHILS % (AUTO) 1.1 % (0.0-5.0); EOSINOPHILS % (AUTO) 2.8 % (0.0-8.0); HEMATOCRIT 38.1 % (36-48); LYMPHOCYTES % (AUTO) 38.5 % (21.0-51.0); MEAN CORPUSCULAR HEMOGLOBIN 24.3 pg (27.0-33.0); MEAN CORPUSCULAR HGB CONC 30.7 g/dL (32.0-36.0); NEUTROPHILS % (AUTO) 52.4 % (40.0-77.0); PLATELET COUNT (AUTO) 259 K/uL (130-400); RED BLOOD CELL COUNT(AUTO) 4.82 MIL/uL (4.00-5.50); RED CELL DISTRIBUTION WIDTH 14.9 % (11.0-15.5); WHITE BLOOD COUNT (AUTO) 5.4 K/uL (4.8-10.8)
[2021-07-31 16:11] LABS: CREATININE 0.5 mg/dL (0.5-1.5); POTASSIUM 4.6 mmol/L (3.5-5.1)
[~2021-08-05] VITALS: Ht 162.6 cm; Wt 72.9 kg
[2021-08-05] VITALS (16 sets, daily range): BP systolic 123–154; BP diastolic 64–84
[~2021-08-05 08:05] MED LIST changes: +DULO20 PO; +FURO40TA5 PO; +METO5 PO; +NOVOLOG SQ
[2021-08-05] MEDS ORDERED: 0.9%NACL 1000ML 1,000 ML IV ONE (09:03)
[2021-08-05] MEDS: CEFAZOLIN SODIUM 1 GM VIAL ONE ×2 (10:03→10:22)
[2021-08-05] MEDS ORDERED: MIDAZOLAM HCL 1 MG/ML 2ML VIAL ONE (10:10)
[2021-08-05] MEDS ORDERED: ROCURONIUM 10MG/1ML SYR 10 MG/ML ML ONE (10:21)
[2021-08-05] MEDS ORDERED: LIDOCAINE HCL MPF 1% 5ML VIAL ONE (10:21)
[2021-08-05] MEDS ORDERED: FENTANYL CITRATE PF 50 MCG/1 ML 2ML VIAL ONE (10:21)
[2021-08-05] MEDS ORDERED: SUCCINYLCHOLINE 200MG/10ML SYR ONE (10:21)
[2021-08-05] MEDS ORDERED: PROPOFOL 10 MG/ML 20ML VIAL IV ONE (10:21)
[2021-08-05] MEDS ORDERED: BUPIVACAINE/PF 0.5% 30ML VIAL ONE ×2 (11:29→11:31)
[2021-08-05] MEDS ORDERED: MEPERIDINE-PF 25 MG/ML SYG ONE ×2 (12:09→12:20)
== END 2021-08-05 13:40 | disposition home or self-care (01) ==
LOC: DAH 08:05
PROVIDERS: ATTEND Surgery
DX: S31.109A Unspecified open wound of abdominal wall, unspecified quadrant without penetration into peritoneal cavity, initial encounter (principal); Z20.822 Contact with and (suspected) exposure to COVID-19; L72.3 Sebaceous cyst; R10.9 Unspecified abdominal pain; R10.2 Pelvic and perineal pain; I10 Essential (primary) hypertension; E11.9 Type 2 diabetes mellitus without complications; F41.9 Anxiety disorder, unspecified; F32.9 Major depressive disorder, single episode, unspecified; E66.9 Obesity, unspecified; M79.7 Fibromyalgia; Z90.710 Acquired absence of both cervix and uterus; Z90.49 Acquired absence of other specified parts of digestive tract; Z79.899 Other long term (current) drug therapy; Z98.84 Bariatric surgery status; Z98.890 Other specified postprocedural states; Z68.26 Body mass index [BMI] 26.0-26.9, adult
CPT/HCPCS: 13101; 13102; 36415; 80048; 82948 ×2; 85025; 87635; A4215; A4221; A4222; A4223; A4510; A4600; A4663; C9803; J0330; J0690; J2175 ×2; J2250; J2704; J3010; J3490 ×2; J7030

== ENCOUNTER 2021-08-30 18:06 | Emergency (ER) | payer MEDICARE ==
[~2021-08-30] VITALS: Ht 162.6 cm; Wt 71.2 kg
[2021-08-30] MEDS ORDERED: NEOMY SULF/BACITRA/POLYMYXIN B 1 EACH PACKET TP ONE (21:00)
[2021-08-30] MEDS ORDERED: CEPHALEXIN 500 MG CAPSULE PO ONE (21:00)
[2021-08-30] MEDS ORDERED: CEPH250T PO (21:03)
[2021-08-30 21:24] VITALS: BP 135/70
== END 2021-08-30 21:26 | disposition home or self-care (01) ==
LOC: EDH 18:06
DX: T81.31XA Disruption of external operation (surgical) wound, not elsewhere classified, initial encounter (principal); E78.00 Pure hypercholesterolemia, unspecified; I10 Essential (primary) hypertension; K21.9 Gastro-esophageal reflux disease without esophagitis; M79.7 Fibromyalgia; Z79.899 Other long term (current) drug therapy; Z98.84 Bariatric surgery status; Y83.8 Other surgical procedures as the cause of abnormal reaction of the patient, or of later complication, without mention of misadventure at the time of the procedure; Y92.89 Other specified places as the place of occurrence of the external cause

== ENCOUNTER → 2022-03-05 | Outpatient (CLI) | payer MEDICARE ==
[~2022-03-05] MED LIST changes: +CEPH250T PO
== END | disposition home or self-care (01) ==
LOC: SHCH 14:04
PROVIDERS: ATTEND Internal Medicine Cardiovascular Disease
DX: I87.2 Venous insufficiency (chronic) (peripheral) (principal)
CPT/HCPCS: 93970

== ENCOUNTER 2022-03-19 06:57 | Day surgery (SDC) | payer MEDICARE ==
[2022-03-17 13:40] VITALS: BP 159/85
[2022-03-17 14:25] LABS: BASOPHILS % (AUTO) 0.8 % (0.0-5.0); EOSINOPHILS % (AUTO) 1.2 % (0.0-8.0); HEMATOCRIT 40.8 % (36-48); LYMPHOCYTES % (AUTO) 33.3 % (21.0-51.0); MEAN CORPUSCULAR HEMOGLOBIN 24.4 pg (27.0-33.0); MEAN CORPUSCULAR HGB CONC 30.6 g/dL (32.0-36.0); MEAN CORPUSCULAR VOLUME 79.5 fL (79-99); MONOCYTES % (AUTO) 4.9 % (3.0-13.0); NEUTROPHILS % (AUTO) 59.5 % (40.0-77.0); PLATELET COUNT (AUTO) 212 K/uL (130-400); RED BLOOD CELL COUNT(AUTO) 5.13 MIL/uL (4.00-5.50); RED CELL DISTRIBUTION WIDTH 15.3 % (11.0-15.5); WHITE BLOOD COUNT (AUTO) 7.6 K/uL (4.8-10.8)
[2022-03-17 14:37] LABS: CREATININE 0.5 mg/dL (0.5-1.5); POTASSIUM 4.5 mmol/L (3.5-5.1)
[2022-03-19] VITALS (16 sets, daily range): BP systolic 146–171; BP diastolic 76–89
[~2022-03-19] VITALS: Ht 162.6 cm; Wt 70.2 kg
[~2022-03-19 06:57] MED LIST changes: -CEPH250T PO; -DULO20 PO; -GABA600T10 PO; -LIRA0.6P SQ; +SEMA1PEN3 SQ
[2022-03-19] MEDS ORDERED: 0.9%NACL 1000ML 1,000 ML IV ONE (07:37)
[2022-03-19] MEDS ORDERED: VANCOMYCIN 1G/250ML KIT 250 ML IV ONE (07:56)
[2022-03-19] MEDS ORDERED: VANCOMYCIN 1G VIAL IV ONE (08:00)
[2022-03-19] MEDS ORDERED: CEFAZOLIN SODIUM 1 GM VIAL IVP ONE (08:00)
[2022-03-19] MEDS ORDERED: FENTANYL CITRATE PF 50 MCG/1 ML 2ML VIAL ONE (08:05)
[2022-03-19] MEDS ORDERED: ONDANSETRON 4MG INJ ONE (08:05)
[2022-03-19] MEDS ORDERED: MIDAZOLAM HCL 1 MG/ML 2ML VIAL ONE ×2 (08:05→09:39)
[2022-03-19] MEDS ORDERED: PROPOFOL 10 MG/ML 20ML VIAL IV ONE (08:40)
[2022-03-19] MEDS ORDERED: BUPIVACAINE/PF 0.5% 30ML VIAL ONE (08:51)
[2022-03-19] MEDS ORDERED: LIDOCAINE HCL 1% MDV 50ML VIAL ONE (08:56)
[2022-03-19] MEDS ORDERED: BUPIVACAINE/PF 0.5% 30ML VIAL INJ ONE (09:01)
[2022-03-19] MEDS ORDERED: LIDOCAINE HCL 1% 20 ML VIAL INJ ONE (09:01)
[2022-03-19] MEDS ORDERED: CEPH500B PO (09:58)
[2022-03-19] MEDS ORDERED: ACET-2079 PO (09:58)
[2022-03-19] MEDS ORDERED: MEPERIDINE-PF 25 MG/ML SYG ONE ×2 (10:14→10:31)
== END 2022-03-19 12:05 | disposition home or self-care (01) ==
LOC: DAH 06:57
PROVIDERS: ATTEND Orthopaedic Surgery
DX: M71.342 Other bursal cyst, left hand (principal); K21.9 Gastro-esophageal reflux disease without esophagitis; I10 Essential (primary) hypertension; E11.9 Type 2 diabetes mellitus without complications; E66.9 Obesity, unspecified; Z86.16 Personal history of COVID-19; Z90.49 Acquired absence of other specified parts of digestive tract; Z98.890 Other specified postprocedural states; Z98.84 Bariatric surgery status; Z72.89 Other problems related to lifestyle; Z88.8 Allergy status to other drugs, medicaments and biological substances; Z82.49 Family history of ischemic heart disease and other diseases of the circulatory system; Z83.3 Family history of diabetes mellitus; Z79.899 Other long term (current) drug therapy; Z79.01 Long term (current) use of anticoagulants
CPT/HCPCS: 26160; 36415; 80048; 82948 ×2; 85025; 87635; A4215; A4221; A4222; A4223 ×2; A4452; A4663; A4930; A5120; A6445; C9803; J2175 ×2; J2250 ×2; J2405; J2704; J3010; J3370 ×2; J3490 ×3; J7030; 96365; J0690

== ENCOUNTER 2022-06-24 08:39 | Observation (INO) | payer MEDICARE ==
[~2022-06-24] VITALS: Ht 162.6 cm; Wt 71.7 kg
[~2022-06-24 08:39] MED LIST changes: +ACET-2079 PO; +CEPH500B PO
[2022-06-24 09:22] LABS: BASOPHILS % (AUTO) 0.5 % (0.0-5.0); HEMATOCRIT 35.2 % (36-48); LYMPHOCYTES % (AUTO) 17.8 % (21.0-51.0); MEAN CORPUSCULAR HEMOGLOBIN 24.4 pg (27.0-33.0); MEAN CORPUSCULAR HGB CONC 31.5 g/dL (32.0-36.0); MEAN CORPUSCULAR VOLUME 77.5 fL (79-99); NEUTROPHILS % (AUTO) 75.4 % (40.0-77.0); PLATELET COUNT (AUTO) 202 K/uL (130-400); RED BLOOD CELL COUNT(AUTO) 4.54 MIL/uL (4.00-5.50); RED CELL DISTRIBUTION WIDTH 13.9 % (11.0-15.5); WHITE BLOOD COUNT (AUTO) 7.7 K/uL (4.8-10.8)
[2022-06-24 09:37] LABS: INR 0.93 (0.85-1.15); PROTHROMBIN TIME 9.5 SEC (9.6-11.6)
[2022-06-24 09:38] LABS: APPEARANCE,URINE CLEAR (CLEAR); BILIRUBIN,URINE NEGATIVE (NEGATIVE); COLOR,URINE YELLOW (YELLOW); GLUCOSE, URINE (UA) >=1000 mg/dL (NEGATIVE); KETONES,URINE NEGATIVE (NEGATIVE); LEUKOCYTE ESTERASE ,URINE NEGATIVE (NEGATIVE); NITRATE,URINE NEGATIVE (NEGATIVE); OCCULT BLOOD,URINE NEGATIVE (NEGATIVE); PROTEIN,URINE NEGATIVE (NEGATIVE); UROBILINOGEN,URINE 0.2 mg/dL (0.2-1.0)
[2022-06-24 09:39] LABS: PARTIAL THROMBOPLASTIN TIME 22.4 SEC (26.3-35.5)
[2022-06-24 09:57] LABS: BACTERIA,URINE Rare /HPF (None Seen); RBC,URINE None Seen /HPF (0-1); SQUAMOUS EPITHELIAL CELL,UR 0-2 /HPF (0-2); WBC,URINE None Seen /HPF (0-1)
[2022-06-24 10:21] LABS: CREATININE 0.6 mg/dL (0.5-1.5); POTASSIUM 3.7 mmol/L (3.5-5.1)
[2022-06-24 11:09] LABS: ALBUMIN 3.6 g/dL (3.5-5.0)
[2022-06-24] MEDS ORDERED: HYDROXYZINE 25 MG TABLET ONE (13:04)
[2022-06-24] MEDS ORDERED: LACTULOSE 20 GM/30 ML UDCUP PO PRN (14:00)
[2022-06-24] MEDS ORDERED: ONDANSETRON 4MG INJ IV PRN (14:00)
[2022-06-24] MEDS ORDERED: ACETAMINOPHEN 325 MG TAB PO PRN ×2 (14:00)
[2022-06-24 17:20] VITALS: BP 149/80
[2022-06-24] MEDS ORDERED: PRED5DRO25 OP (18:03)
[2022-06-24] MEDS ORDERED: KETO5DRO82 OP (18:03)
[2022-06-24] MEDS ORDERED: CYCL30DR OP (18:03)
[2022-06-24] MEDS ORDERED: BRIM5DRO21 OP (18:03)
[2022-06-24] MEDS ORDERED: LIFI1DRO OP (18:03)
[2022-06-24] MEDS ORDERED: OLOP2.5D16 OP (18:03)
[2022-06-24] MEDS ORDERED: SUCRALFATE 1 GM TABLET PO PRN (19:30)
[2022-06-24 20:13] VITALS: BP 135/74
[2022-06-24] MEDS: FAMOTIDINE 20MG VIAL IV SCH (20:57)
[2022-06-24] MEDS: METOPROLOL TARTRATE 25 MG TAB PO SCH (20:59)
[2022-06-24] MEDS: ALPRAZOLAM 1 MG TAB PO SCH (21:00)
[2022-06-24] MEDS: INSULIN HUMULIN R 100 UNIT/ML 3ML SQ SCH (21:00)
[2022-06-24] MEDS: INSULIN GLARGINE 100 UNITS/ML 10 ML VIAL SQ SCH (21:03)
[2022-06-24] MEDS: ENOXAPARIN SODIUM 80 MG/0.8 ML SQ SCH (21:04)
[2022-06-24 23:49] VITALS: BP 138/75
[2022-06-25 03:56] VITALS: BP 150/81
[2022-06-25 04:39] LABS: BASOPHILS % (AUTO) 0.8 % (0.0-5.0); EOSINOPHILS % (AUTO) 0.2 % (0.0-8.0); HEMATOCRIT 34.1 % (36-48); LYMPHOCYTES % (AUTO) 28.5 % (21.0-51.0); MEAN CORPUSCULAR HEMOGLOBIN 24.9 pg (27.0-33.0); MEAN CORPUSCULAR HGB CONC 31.7 g/dL (32.0-36.0); MEAN CORPUSCULAR VOLUME 78.6 fL (79-99); MONOCYTES % (AUTO) 4.9 % (3.0-13.0); NEUTROPHILS % (AUTO) 65.1 % (40.0-77.0); PLATELET COUNT (AUTO) 202 K/uL (130-400); RED BLOOD CELL COUNT(AUTO) 4.34 MIL/uL (4.00-5.50); WHITE BLOOD COUNT (AUTO) 6.6 K/uL (4.8-10.8)
[2022-06-25 04:47] LABS: % IRON SATURATION 5.2 % (22-44)
[2022-06-25 05:23] LABS: ALBUMIN 3.2 g/dL (3.5-5.0); CREATININE 0.4 mg/dL (0.5-1.5); POTASSIUM 3.9 mmol/L (3.5-5.1); THYROID STIMULATING HORMONE 0.22 uIU/mL (0.36-3.74); TOTAL PROTEIN, SERUM 6.3 g/dL (6.0-8.3)
[2022-06-25 06:48] VITALS: BP_SYST 124; BP_SYST 152; BP_DIAS 81; BP_DIAS 84
[2022-06-25] MEDS: INSULIN HUMULIN R 100 UNIT/ML 3ML SQ SCH ×7 (06:48→20:37)
[2022-06-25] MEDS: ALPRAZOLAM 1 MG TAB PO SCH ×2 (08:37→21:36)
[2022-06-25] MEDS: FAMOTIDINE 20MG VIAL IV SCH ×2 (08:37→20:25)
[2022-06-25] MEDS: METOCLOPRAMIDE 5 MG TABLET PO SCH (08:37)
[2022-06-25] MEDS: METOPROLOL TARTRATE 25 MG TAB PO SCH ×2 (08:37→20:26)
[2022-06-25] MEDS: ENOXAPARIN SODIUM 80 MG/0.8 ML SQ SCH ×2 (08:38→20:27)
[2022-06-25] MEDS: [UNRECOGNIZED DRUG - OTHER] OP SCH (08:39)
[2022-06-25] MEDS: OLOPATADINE HCL 0.1% 5ML DROPS OP SCH (08:40)
[2022-06-25] MEDS: TIMOLOL MALEATE 0.5% 5 ML BOTTLE OP SCH (08:40)
[2022-06-25] MEDS: LIFITEGRAST OPTH OP SCH (08:41)
[2022-06-25] MEDS: BRIMONIDINE TARTRATE 0.2% 5 ML BOTTLE OP SCH (08:42)
[2022-06-25] MEDS: **HM**(Cyclosporine (Restasis) 1 EACH) OP SCH (08:43)
[2022-06-25 11:10] VITALS: BP 136/80
[2022-06-25] MEDS ORDERED: IRON SUCROSE COMPLEX 500 MG in 0.9%NACL 50ML 50 ML IV SCH (14:00)
[2022-06-25 15:30] VITALS: BP 148/85
[2022-06-25 19:07] VITALS: BP 141/81
[2022-06-25] MEDS: IBUPROFEN 600 MG TABLET PO PRN (20:26)
[2022-06-25] MEDS: INSULIN GLARGINE 100 UNITS/ML 10 ML VIAL SQ SCH (20:38)
[2022-06-26 03:16] VITALS: BP 139/75
[2022-06-26] MEDS: IBUPROFEN 600 MG TABLET PO PRN (03:21)
[2022-06-26 04:30] LABS: BASOPHILS % (AUTO) 0.6 % (0.0-5.0); EOSINOPHILS % (AUTO) 0.5 % (0.0-8.0); HEMATOCRIT 33.6 % (36-48); LYMPHOCYTES % (AUTO) 14.9 % (21.0-51.0); MEAN CORPUSCULAR HEMOGLOBIN 24.5 pg (27.0-33.0); MEAN CORPUSCULAR HGB CONC 31.8 g/dL (32.0-36.0); MEAN CORPUSCULAR VOLUME 77.1 fL (79-99); MONOCYTES % (AUTO) 5.1 % (3.0-13.0); NEUTROPHILS % (AUTO) 78.4 % (40.0-77.0); PLATELET COUNT (AUTO) 166 K/uL (130-400); RED BLOOD CELL COUNT(AUTO) 4.36 MIL/uL (4.00-5.50); RED CELL DISTRIBUTION WIDTH 13.7 % (11.0-15.5); WHITE BLOOD COUNT (AUTO) 7.8 K/uL (4.8-10.8)
[2022-06-26 04:48] LABS: CREATININE 0.6 mg/dL (0.5-1.5); TOTAL PROTEIN, SERUM 6.1 g/dL (6.0-8.3)
[2022-06-26] MEDS: INSULIN HUMULIN R 100 UNIT/ML 3ML SQ SCH ×4 (05:38→11:31)
[2022-06-26 07:03] VITALS: BP 130/64
[2022-06-26] MEDS: LIFITEGRAST OPTH OP SCH (09:00)
[2022-06-26] MEDS ORDERED: METOPROLOL SUCCINATE 50 MG TAB.SR.24H PO SCH (09:00)
[2022-06-26] MEDS: **HM**(Cyclosporine (Restasis) 1 EACH) OP SCH (09:00)
[2022-06-26] MEDS: [UNRECOGNIZED DRUG - OTHER] OP SCH (09:00)
[2022-06-26] MEDS: METOCLOPRAMIDE 5 MG TABLET PO SCH (09:06)
[2022-06-26] MEDS: ALPRAZOLAM 1 MG TAB PO SCH (09:06)
[2022-06-26] MEDS: FAMOTIDINE 20MG VIAL IV SCH (09:07)
[2022-06-26] MEDS: TIMOLOL MALEATE 0.5% 5 ML BOTTLE OP SCH (09:10)
[2022-06-26] MEDS: OLOPATADINE HCL 0.1% 5ML DROPS OP SCH (09:11)
[2022-06-26] MEDS: BRIMONIDINE TARTRATE 0.2% 5 ML BOTTLE OP SCH (09:12)
[2022-06-26] MEDS: ENOXAPARIN SODIUM 80 MG/0.8 ML SQ SCH (09:15)
[2022-06-26] MEDS ORDERED: METO50TA9 PO (11:22)
[2022-06-26 11:55] VITALS: BP 148/79
== END 2022-06-26 13:10 | disposition home or self-care (01) ==
LOC: EDH 08:39 → EDHIP 13:34 → INTOOBSV 13:34 → 2AH 17:19
PROVIDERS: ADMIT Internal Medicine; ATTEND Internal Medicine
DX: I48.0 Paroxysmal atrial fibrillation (principal); D64.9 Anemia, unspecified; E11.65 Type 2 diabetes mellitus with hyperglycemia; I10 Essential (primary) hypertension; K31.84 Gastroparesis; E78.00 Pure hypercholesterolemia, unspecified; F43.10 Post-traumatic stress disorder, unspecified; D50.9 Iron deficiency anemia, unspecified; M79.7 Fibromyalgia; E78.5 Hyperlipidemia, unspecified; Z79.4 Long term (current) use of insulin; Z79.899 Other long term (current) drug therapy; Z90.710 Acquired absence of both cervix and uterus; Z98.84 Bariatric surgery status; Z90.49 Acquired absence of other specified parts of digestive tract; Z98.890 Other specified postprocedural states
CPT/HCPCS: 99285; 71045; 96375; 96372 ×3; 84443 ×2; 84484; 80053 ×3; 83880; 85025 ×3; 85378; 85610; 85730; 82948 ×5; 81001; 36415 ×3; 93005; 96365; 82270; 96376 ×2; 83036; 83540; 83550; 82728; 85045; 84439; 84481; 82746; 93306; 93356; J1815 ×7; J3490 ×4; J1650 ×4; J1756; G0378

== ENCOUNTER → 2022-12-24 | Outpatient (CLI) | payer MEDICARE ==
[~2022-12-24] MED LIST changes: -ACET-2079 PO; +BRIM5DRO21 OP; -CEPH500B PO; +CYCL30DR OP; +KETO5DRO82 OP; +LIFI1DRO OP; +METO50TA9 PO; +OLOP2.5D16 OP; +PRED5DRO25 OP
== END | disposition home or self-care (01) ==
LOC: SHCH 11:14
PROVIDERS: ATTEND Internal Medicine Cardiovascular Disease
DX: I87.2 Venous insufficiency (chronic) (peripheral) (principal)
CPT/HCPCS: 93970

== ENCOUNTER → 2023-12-05 | Outpatient (CLI) | payer MEDICARE ==
[~2023-12-05] MED LIST changes: +FAMO40TA7 PO; +GABA300C PO; +HYDR25TA PO; -KETO5DRO82 OP; +KETO5DRO82 OU; -LIFI1DRO OP; +LIFI1DRO OU; +METO-391 PO; +PERF3DRO OU; +TIRZ10PE SQ; +VARE0.03 NS; +[UNRECOGNIZED DRUG - OTHER] OU
== END | disposition home or self-care (01) ==
LOC: SHCH 14:47
PROVIDERS: ATTEND Internal Medicine Cardiovascular Disease
DX: I87.2 Venous insufficiency (chronic) (peripheral) (principal)
CPT/HCPCS: 93970

== ENCOUNTER 2023-12-11 07:06 | Day surgery (SDC) | payer MEDICARE ==
[2023-12-09 15:25] LABS: BASOPHILS # (AUTO) 0.09 K/uL (0.00-0.20); BASOPHILS % (AUTO) 1.4 % (0.0-5.0); HEMATOCRIT 38.3 % (36-48); IMMATURE GRANULOCYTE ABSOLUTE 0.01 K/uL (0-1); MEAN CORPUSCULAR HEMOGLOBIN 28.2 pg (27.0-33.0); MEAN CORPUSCULAR HGB CONC 33.2 g/dL (32.0-36.0); MEAN CORPUSCULAR VOLUME 85.1 fL (79-99); MONOCYTES # (AUTO) 0.3 K/uL (0.1-1.0); MONOCYTES % (AUTO) 4.5 % (3.0-13.0); NEUTROPHILS # (AUTO) 4.1 K/uL (1.8-7.7); NEUTROPHILS % (AUTO) 60.9 % (40.0-77.0); PLATELET COUNT (AUTO) 181 K/uL (130-400); RED CELL DISTRIBUTION WIDTH 13.4 % (11.0-15.5); WHITE BLOOD COUNT (AUTO) 6.7 K/uL (4.8-10.8)
[2023-12-09 16:25] VITALS: BP 123/68; PULSE 68; RESP 18
[2023-12-11] VITALS (15 sets, daily range): BP systolic 117–157; BP diastolic 61–83; PULSE 61–73; RESP 14–18
[~2023-12-11] VITALS: Ht 162.6 cm; Wt 62.2 kg
[~2023-12-11 07:06] MED LIST changes: -BRIM5DRO21 OP; -CYCL30DR OP; -FURO40TA5 PO; -LINA290C PO; -METO5 PO; -METO50TA9 PO; -OLOP2.5D16 OP; -PRED5DRO25 OP; -SEMA1PEN3 SQ
[2023-12-11] MEDS: 0.9%NACL 1000ML 1,000 ML IV ONE (07:20)
[2023-12-11] MEDS ORDERED: BUPIVACAINE/PF 0.25% 30ML VIAL IJ ONE (07:28)
[2023-12-11] MEDS ORDERED: BUPIVACAINE/PF 0.5% 30ML VIAL ONE ×2 (08:07→08:44)
[2023-12-11] MEDS ORDERED: MIDAZOLAM HCL 1 MG/ML 2ML VIAL ONE (08:19)
[2023-12-11] MEDS ORDERED: LIDOCAINE PF 100MG/5ML (2%) SYRINGE 5ML ONE (08:19)
[2023-12-11 08:20] LABS: CREATININE 0.5 mg/dL (0.5-1.5); POTASSIUM 4.4 mmol/L (3.5-5.1)
[2023-12-11] MEDS ORDERED: KETAMINE 50MG/ML SYRINGE 50 MG/ML DISP.SYRIN ONE (08:20)
[2023-12-11] MEDS: CEFAZOLIN SODIUM 2 GM VIAL ONE (08:39)
[2023-12-11] MEDS ORDERED: MIDAZOLAM HCL 1 MG/ML 5ML VIAL ONE (08:43)
[2023-12-11] MEDS: BUPIVACAINE/PF 0.5% 30ML VIAL INJ ONE (08:45)
[2023-12-11] MEDS: ONDANSETRON 4MG INJ ONE (09:38)
[2023-12-11] MEDS: MEPERIDINE-PF 25 MG/ML SYG ONE (09:39)
== END 2023-12-11 10:47 | disposition home or self-care (01) ==
LOC: DAH 07:06
PROVIDERS: ATTEND Surgery
DX: D17.1 Benign lipomatous neoplasm of skin and subcutaneous tissue of trunk (principal); I10 Essential (primary) hypertension; E78.5 Hyperlipidemia, unspecified; M79.7 Fibromyalgia; E11.43 Type 2 diabetes mellitus with diabetic autonomic (poly)neuropathy; K31.84 Gastroparesis; F41.9 Anxiety disorder, unspecified; F32.A Depression, unspecified; Z79.01 Long term (current) use of anticoagulants; Z98.890 Other specified postprocedural states; Z98.84 Bariatric surgery status; Z98.891 History of uterine scar from previous surgery; Z90.710 Acquired absence of both cervix and uterus; Z90.49 Acquired absence of other specified parts of digestive tract; Z82.49 Family history of ischemic heart disease and other diseases of the circulatory system; Z83.3 Family history of diabetes mellitus; Z80.1 Family history of malignant neoplasm of trachea, bronchus and lung; Z88.8 Allergy status to other drugs, medicaments and biological substances; Z79.4 Long term (current) use of insulin; Z79.899 Other long term (current) drug therapy
CPT/HCPCS: 85025; 36415 ×2; 22903; 80048; 82948 ×2; 88305; A6260; A4663; J7030; J2001; J2250 ×2; J2405; J0665 ×2; J2175; J3490; J0690; A4930; A4215; A4223; A4222; A4221; G0168

== ENCOUNTER 2024-04-25 07:12 | Day surgery (SDC) | payer MEDICARE ==
[~2024-04-25] VITALS: Ht 162.6 cm; Wt 56.7 kg
[2024-04-25] MEDS: 0.9%NACL 1000ML 1,000 ML IV ONE (07:14)
[2024-04-25 07:23] VITALS: BP 142/75; PULSE 61; RESP 16
[2024-04-25] MEDS ORDERED: GABA300C PO (07:29)
[2024-04-25] MEDS ORDERED: PROPOFOL 10 MG/ML 20ML VIAL IV ONE (09:20)
[2024-04-25] MEDS: DEXTROSE 50%-WATER 50 ML DISP.SYRIN IV ONE (09:26)
[2024-04-25 11:03] LABS: BASOPHILS # (AUTO) 0.05 K/uL (0.00-0.20); BASOPHILS % (AUTO) 0.9 % (0.0-5.0); EOSINOPHILS # (AUTO) 0.11 K/uL (0.00-0.70); HEMATOCRIT 37.3 % (36-48); IMMATURE GRANULOCYTE ABSOLUTE 0.01 K/uL (0-1); LYMPHOCYTES # (AUTO) 2.2 K/uL (1.0-4.8); LYMPHOCYTES % (AUTO) 38.7 % (21.0-51.0); MEAN CORPUSCULAR HEMOGLOBIN 27.6 pg (27.0-33.0); MEAN CORPUSCULAR HGB CONC 31.6 g/dL (32.0-36.0); MEAN CORPUSCULAR VOLUME 87.4 fL (79-99); MONOCYTES # (AUTO) 0.2 K/uL (0.1-1.0); MONOCYTES % (AUTO) 3.9 % (3.0-13.0); NEUTROPHILS # (AUTO) 3.1 K/uL (1.8-7.7); NEUTROPHILS % (AUTO) 54.3 % (40.0-77.0); PLATELET COUNT (AUTO) 168 K/uL (130-400); RED BLOOD CELL COUNT(AUTO) 4.27 MIL/uL (4.00-5.50); RED CELL DISTRIBUTION WIDTH 14.1 % (11.0-15.5); WHITE BLOOD COUNT (AUTO) 5.6 K/uL (4.8-10.8)
[2024-04-25 11:11] LABS: HEMOGLOBIN A1C 5.2 % (4.0-6.0)
[2024-04-25 11:45] LABS: ALBUMIN 3.5 g/dL (3.5-5.0); BILIRUBIN,TOTAL 0.7 mg/dL (0.2-1.0); CREATININE 0.4 mg/dL (0.5-1.0); POTASSIUM 3.5 mmol/L (3.5-5.1); T4 (THYROXINE) 7.9 ug/dL (4.7-13.3); THYROID STIMULATING HORMONE 1.66 uIU/mL (0.36-3.74); TOTAL PROTEIN, SERUM 6.7 g/dL (6.0-8.3)
== END 2024-04-25 10:10 | disposition home or self-care (01) ==
LOC: DAH 07:12
PROVIDERS: ATTEND Surgery
DX: K21.9 Gastro-esophageal reflux disease without esophagitis (principal); K29.50 Unspecified chronic gastritis without bleeding; R13.10 Dysphagia, unspecified; F41.9 Anxiety disorder, unspecified; F32.A Depression, unspecified; E78.5 Hyperlipidemia, unspecified; E11.9 Type 2 diabetes mellitus without complications; I10 Essential (primary) hypertension; M79.7 Fibromyalgia; I48.91 Unspecified atrial fibrillation; Z90.49 Acquired absence of other specified parts of digestive tract; Z98.84 Bariatric surgery status; Z90.710 Acquired absence of both cervix and uterus; Z79.899 Other long term (current) drug therapy
CPT/HCPCS: 43239; 80061; 83036; 84443; 84436; 83540; 83735; 80053; 85025; 82948 ×3; 82306; 84446; 84207; 84425; 82607; 84481; 82746; 84590; 84630; 36415; 88305; 88312; J7030; J7070; J2704; A4620; A4215 ×2; A4223; A4222; A4221; A4663; A4606; J3490

== ENCOUNTER → 2024-05-06 | Outpatient (CLI) | payer MEDICARE ==
[~2024-05-06] MED LIST changes: -HYDR25TA PO; -INSLAN SQ; -KETO5DRO82 OU; -LIFI1DRO OU; -NOVOLOG SQ; -PERF3DRO OU; -SUCR1ORA15 PO; -VARE0.03 NS; -ZOLP10TA2 PO; -[UNRECOGNIZED DRUG - OTHER] OU
== END | disposition home or self-care (01) ==
LOC: SHCH 13:39
PROVIDERS: ATTEND Internal Medicine Cardiovascular Disease
DX: I08.3 Combined rheumatic disorders of mitral, aortic and tricuspid valves (principal); R60.9 Edema, unspecified; R00.2 Palpitations
CPT/HCPCS: 93306

== ENCOUNTER → 2024-11-22 | Outpatient (CLI) | payer MEDICARE ==
--- NOTE | 2024-11-23 07:22 | HMCSR ---
APPROVED REPORT Laterality: Bilateral Indications Claudication: , PAD VELOCITY AND DOPPLER WAVEFORM ANALYSIS LATHE OPERATOR (R) 83.2cm/sec, Biphasic, LATHE OPERATOR (L) 147.7cm/sec, Biphasic, Prof Fem Art. (R) 71.8cm/sec, Biphasic, Prof Fem Art. (L) 78.1cm/sec, Biphasic, Fem Art Prox. (R) 66.1cm/sec, Biphasic, Fem Art Prox. (L) 68.2cm/sec, Biphasic, Fem Art Mid. (R) 90.5cm/sec, Biphasic, Fem Art Mid. (L) 95.1cm/sec, Biphasic, Fem Art Dist (R) 71.0cm/sec, Biphasic, Fem Art Dist. (L) 95.1cm/sec, Biphasic, Pop Art(AK) (R) 61.2cm/sec, Biphasic, Pop Art (AK) (L) 67.3cm/sec, Biphasic, Pop Art (Fossa)(R) 69.3cm/sec, Biphasic, Pop Art (Fossa) (L) 70.0cm/sec, Biphasic, Pop Art(BK) (R) 88.1cm/sec, Biphasic, Pop Art (BK) (L) 66.4cm/sec, Biphasic, WATER/WASTEWATER ENGINEER Prox. (R) 47.7cm/sec, Biphasic, WATER/WASTEWATER ENGINEER Prox. (L) 80.8cm/sec, Biphasic, WATER/WASTEWATER ENGINEER Mid. (R) 55.5cm/sec, Biphasic, WATER/WASTEWATER ENGINEER Mid. (L) 68.2cm/sec, Biphasic, WATER/WASTEWATER ENGINEER Dist. (R) 42.1cm/sec, Biphasic, WATER/WASTEWATER ENGINEER Dist. (L) 61.0cm/sec, Biphasic, Per Art Prox. (R) 42.1cm/sec, Biphasic, Per Art Prox. (L) 29.2cm/sec, Biphasic, Per Art Mid. (R) 35.3cm/sec, Biphasic, Per Art Mid. (L) 35.9cm/sec, Biphasic, Per Art Dist. (R) 32.0cm/sec, Biphasic, Per Art Dist. (L) 29.2cm/sec, Biphasic, ADELITA Prox. (R) 73.8cm/sec, Biphasic, ADELITA Prox. (L) 107.7cm/sec, Biphasic, ADELITA Mid. (R) 71.1cm/sec, Biphasic ADELITA Mid. (L) 75.0cm/sec, Biphasic, ADELITA Dist. (R) 58.7cm/sec, Biphasic, ADELITA Dist. (L) 83.2cm/sec, Biphasic, Technologist Impression No evidence of significant arterial insufficiency of bilateral lower extremities. Conclusion No evidence of significant arterial insufficiency of bilateral lower extremities. Conclusion No evidence of significant arterial insufficiency of bilateral lower extremities.
== END | disposition home or self-care (01) ==
LOC: SHCH 15:32
PROVIDERS: ATTEND Internal Medicine Cardiovascular Disease
DX: I73.9 Peripheral vascular disease, unspecified (principal)
CPT/HCPCS: 93925